=== PATIENT | male | born 1975 | race Caucasian/White ===

== ENCOUNTER 2023-01-28 10:20 | Inpatient (IN) | payer OTHER ==
[~2023-01-28] VITALS: Ht 185.4 cm; Wt 77.0 kg
[~2023-01-28 10:20] MED LIST: ACET-2247 PO; FAMO20 PO; GABA-1216 PO; HYDR50CA7 PO; MAGN-169 PO; TRAZ-252 PO
[2023-01-28 12:25] LABS: COVID AG,FIA SOURCE NASAL SWAB
[2023-01-28 12:29] LABS: BASOPHILS % (AUTO) 0.5 % (0.0-2.0); EOSINOPHILS % (AUTO) 1.6 % (1.0-6.0); HEMATOCRIT 45.6 % (41-53); HEMOGLOBIN 15.9 g/dL (13.5-17.5); LYMPHOCYTES # (AUTO) 2.7 K/uL (1.0-4.8); LYMPHOCYTES % (AUTO) 35.9 % (22.0-44.0); MEAN CORPUSCULAR HEMOGLOBIN 30.1 pg (26.0-34.0); MEAN CORPUSCULAR HGB CONC 34.7 G/dL (31.0-37.0); MEAN CORPUSCULAR VOLUME 87 fL (80-100); MONOCYTES % (AUTO) 12.7 % (2.0-9.0); NEUTROPHILS # (AUTO) 3.7 K/uL (1.8-7.7); NEUTROPHILS % (AUTO) 49.3 % (40.0-70.0); PLATELET COUNT (AUTO) 270 K/uL (150-450); RED BLOOD CELL COUNT(AUTO) 5.26 MIL/uL (4.50-5.90); RED CELL DISTRIBUTION WIDTH 13.9 % (11.5-14.5); WHITE BLOOD COUNT (AUTO) 7.5 K/uL (4.5-11.0)
[2023-01-28] MEDS ORDERED: MAGNESIUM HYDROXIDE SUSPENSION 30 ML UDCUP PO PRN (12:30)
[2023-01-28 12:49] LABS: ANION GAP 10 mmol/L (8-16); CARBON DIOXIDE 26 mmol/L (22-29); CHLORIDE 104 mmol/L (98-107); CREATININE 0.95 mg/dL (0.60-1.30); GLOMERULAR FILTR. RATE CALC > 60 mL/min (>60); GLUCOSE,RANDOM 82 mg/dL (70-110); POTASSIUM 3.8 mmol/L (3.5-5.1); SODIUM SERUM 140 mmol/L (136-145); UREA NITROGEN, BLOOD 14 mg/dL (7-18)
[2023-01-28 12:55] LABS: ALANINE AMINOTRANSFERASE 21 U/L (12-78); ALBUMIN 3.5 g/dL (3.4-5.0); ALKALINE PHOSPHATASE 58 U/L (46-116); ASPARTATE AMINOTRANSFERASE 12 U/L (15-37); BILIRUBIN,TOTAL 0.3 mg/dL (0.1-1.0); TOTAL PROTEIN, SERUM 7.4 g/dL (6.4-8.2)
[2023-01-28 12:59] LABS: SARS-COV2 (COVID) ANTIGEN,FIA Positive (Negative)
[2023-01-28] MEDS: ACETAMINOPHEN 325 MG TABLET PO PRN (17:34)
[2023-01-28 18:12] VITALS: BP 134/83; PULSE 73; RESP 18; TEMP 98.1
[2023-01-28 20:27] VITALS: BP 108/54; PULSE 69; RESP 18; TEMP 97.7
[2023-01-28 22:03] LABS: ALCOHOL, URINE DRUG SCREEN NEGATIVE (NEGATIVE); AMPHET/METH SCREEN,URINE NEGATIVE (NEGATIVE); BARBITURATE SCREEN, URINE NEGATIVE (NEGATIVE); BENZODIAZEPINES SCREEN,URINE NEGATIVE (NEGATIVE); CANNABINOID SCREEN,URINE NEGATIVE (NEGATIVE); COCAINE SCREEN,URINE NEGATIVE (NEGATIVE); METHADONE SCREEN, URINE NEGATIVE (NEGATIVE); OPIATE SCREEN,URINE NEGATIVE (NEGATIVE); PHENCYCLIDINE SCREEN,URINE NEGATIVE (NEGATIVE)
[2023-01-28 23:47] VITALS: BP 119/73; PULSE 69; RESP 18; TEMP 98
[2023-01-29] VITALS (10 sets, daily range): BP systolic 104–141; BP diastolic 60–83; PULSE 61–81; RESP 16–18; TEMP 97.5–98.5
[2023-01-29] MEDS: ZOLPIDEM TARTRATE 5 MG TABLET PO PRN ×2 (01:19→22:15)
[2023-01-29] MEDS: ACETAMINOPHEN 325 MG TABLET PO PRN (07:00)
[2023-01-29] MEDS: FAMOTIDINE 20 MG TABLET PO SCH (08:48)
[2023-01-29] MEDS ORDERED: MAG HYDROX/ALUMINUM HYD/SIMETH ES 30 ML SUSPENSION UDCUP PO PRN (11:15)
[2023-01-29] MEDS ORDERED: CloNIDine HCL 0.1 MG TABLET PO PRN (11:15)
[2023-01-29] MEDS: SERTRALINE HCL 50 MG TABLET PO SCH (12:10)
[2023-01-29] MEDS: CloNIDine HCL 0.1 MG TABLET PO SCH ×3 (12:10→22:15)
[2023-01-29] MEDS: TraZODone HCL 50 MG TABLET PO SCH (20:50)
[2023-01-30 04:33] VITALS: BP 102/62; PULSE 60; RESP 18; TEMP 97.7
[2023-01-30 05:53] VITALS: BP 124/68; PULSE 61; RESP 18
[2023-01-30] MEDS: CloNIDine HCL 0.1 MG TABLET PO SCH ×4 (05:55→20:42)
[2023-01-30] MEDS: ACETAMINOPHEN 325 MG TABLET PO PRN (06:39)
[2023-01-30 08:25] VITALS: BP 118/72; PULSE 66; RESP 19; TEMP 97.9
[2023-01-30] MEDS: FAMOTIDINE 20 MG TABLET PO SCH (08:39)
[2023-01-30] MEDS: SERTRALINE HCL 50 MG TABLET PO SCH (08:39)
[2023-01-30] MEDS ORDERED: INFLUENZA VIRUS VACCINE QVS 2023-24 (6MO+)/PF 60 MCG/0.5 ML SYRINGE IM. ONE (10:30)
[2023-01-30] MEDS: HydrOXYzine PAMOATE 50 MG CAPSULE PO PRN (15:00)
[2023-01-30 19:58] VITALS: BP 101/69; PULSE 68; RESP 18; TEMP 98.1
[2023-01-30] MEDS: TraZODone HCL 50 MG TABLET PO SCH (20:39)
[2023-01-30] MEDS: ZOLPIDEM TARTRATE 5 MG TABLET PO PRN (20:46)
[2023-01-31 06:24] VITALS: BP 102/78; PULSE 66; RESP 18; TEMP 97.7
[2023-01-31] MEDS: ACETAMINOPHEN 325 MG TABLET PO PRN ×3 (06:35→21:03)
[2023-01-31] MEDS: CloNIDine HCL 0.1 MG TABLET PO SCH ×4 (06:36→21:02)
[2023-01-31 08:07] VITALS: BP 104/76; PULSE 68; RESP 18; TEMP 97.8
[2023-01-31] MEDS: FAMOTIDINE 20 MG TABLET PO SCH (09:02)
[2023-01-31] MEDS: SERTRALINE HCL 50 MG TABLET PO SCH (09:02)
[2023-01-31 17:05] VITALS: BP 103/57; PULSE 64; RESP 20; TEMP 97.8
[2023-01-31] MEDS: HydrOXYzine PAMOATE 50 MG CAPSULE PO PRN (18:52)
[2023-01-31 19:45] VITALS: BP 106/59; PULSE 64; RESP 18; TEMP 97.8
[2023-01-31] MEDS: TraZODone HCL 50 MG TABLET PO SCH (21:02)
[2023-01-31] MEDS: ZOLPIDEM TARTRATE 5 MG TABLET PO PRN (21:02)
[2023-02-01] MEDS: CloNIDine HCL 0.1 MG TABLET PO SCH ×4 (05:25→21:13)
[2023-02-01 05:42] VITALS: BP 101/70; PULSE 58; PULSE 62; RESP 18; TEMP 98
[2023-02-01] MEDS: ACETAMINOPHEN 325 MG TABLET PO PRN (05:44)
[2023-02-01 08:11] VITALS: BP 100/60; PULSE 62; RESP 18; TEMP 97.7
[2023-02-01] MEDS: SERTRALINE HCL 50 MG TABLET PO SCH (09:14)
[2023-02-01] MEDS: FAMOTIDINE 20 MG TABLET PO SCH (09:14)
[2023-02-01 11:52] VITALS: BP 105/65; RESP 19
[2023-02-01] MEDS: HydrOXYzine PAMOATE 50 MG CAPSULE PO PRN (14:55)
[2023-02-01 15:31] VITALS: BP 123/64; PULSE 68; RESP 18; TEMP 97.5
[2023-02-01 20:05] VITALS: BP 107/57; PULSE 55; RESP 20; TEMP 97.5
[2023-02-01] MEDS: ZOLPIDEM TARTRATE 5 MG TABLET PO PRN (21:07)
[2023-02-01] MEDS: TraZODone HCL 50 MG TABLET PO SCH (21:07)
[2023-02-02 04:00] VITALS: BP 102/70; PULSE 54; RESP 18; TEMP 98.1
[2023-02-02] MEDS: CloNIDine HCL 0.1 MG TABLET PO SCH ×5 (06:00→20:24)
[2023-02-02] MEDS: FAMOTIDINE 20 MG TABLET PO SCH (08:05)
[2023-02-02] MEDS: SERTRALINE HCL 50 MG TABLET PO SCH (08:05)
[2023-02-02 08:21] VITALS: BP 135/79; PULSE 67; RESP 18; TEMP 97.5
[2023-02-02] MEDS: HydrOXYzine PAMOATE 50 MG CAPSULE PO PRN (11:37)
[2023-02-02] MEDS: ACETAMINOPHEN 325 MG TABLET PO PRN ×2 (11:38→17:00)
[2023-02-02 17:08] VITALS: BP 117/66; PULSE 66
[2023-02-02 20:13] VITALS: BP 104/57; PULSE 60; RESP 18; TEMP 97.8
[2023-02-02] MEDS: TraZODone HCL 50 MG TABLET PO SCH (20:14)
[2023-02-02] MEDS: ZOLPIDEM TARTRATE 5 MG TABLET PO PRN (20:22)
[2023-02-03] MEDS: HydrOXYzine PAMOATE 50 MG CAPSULE PO PRN (04:37)
[2023-02-03 04:46] VITALS: BP 104/64; PULSE 52; RESP 18; TEMP 97.6
[2023-02-03] MEDS: CloNIDine HCL 0.1 MG TABLET PO SCH (05:12)
[2023-02-03] MEDS: ACETAMINOPHEN 325 MG TABLET PO PRN ×2 (05:58→16:02)
[2023-02-03 07:10] LABS: COVID AG,FIA SOURCE NASAL SWAB
[2023-02-03 07:31] LABS: SARS-COV2 (COVID) ANTIGEN,FIA Negative (Negative)
[2023-02-03 08:28] VITALS: BP 99/56; PULSE 62; RESP 18; TEMP 98
[2023-02-03] MEDS: SERTRALINE HCL 50 MG TABLET PO SCH ×2 (08:35→08:40)
[2023-02-03] MEDS: FAMOTIDINE 20 MG TABLET PO SCH (08:35)
[2023-02-03 15:36] VITALS: BP 114/92; PULSE 65; RESP 18; TEMP 98
[2023-02-03] MEDS: TraZODone HCL 50 MG TABLET PO SCH (20:07)
[2023-02-03] MEDS: ZOLPIDEM TARTRATE 5 MG TABLET PO PRN (20:07)
[2023-02-03 20:11] VITALS: BP 124/80; PULSE 72; RESP 20; TEMP 98.3
[2023-02-04 05:24] VITALS: BP 120/76; PULSE 69; RESP 20; TEMP 97.8
[2023-02-04] MEDS: FAMOTIDINE 20 MG TABLET PO SCH (08:44)
[2023-02-04] MEDS: ACETAMINOPHEN 325 MG TABLET PO PRN ×2 (08:46→14:56)
[2023-02-04 08:59] VITALS: BP 107/75; PULSE 69; RESP 20; TEMP 97.6
[2023-02-04] MEDS: SERTRALINE HCL 50 MG TABLET PO SCH (09:00)
[2023-02-04] MEDS: TraZODone HCL 50 MG TABLET PO SCH (19:56)
[2023-02-04] MEDS: ZOLPIDEM TARTRATE 5 MG TABLET PO PRN (19:56)
[2023-02-04] MEDS: OLANZapine 5 MG TABLET PO SCH (19:56)
[2023-02-04 20:01] VITALS: BP 105/66; PULSE 61; RESP 20; TEMP 97.8
[2023-02-04] MEDS: IBUPROFEN 600 MG TABLET PO PRN (20:02)
[2023-02-05 05:08] VITALS: BP 101/62; PULSE 58; RESP 20; TEMP 97.8
[2023-02-05] MEDS: FAMOTIDINE 20 MG TABLET PO SCH (07:54)
[2023-02-05 08:16] VITALS: BP 117/68; PULSE 62; RESP 20; TEMP 97.8
[2023-02-05] MEDS: IBUPROFEN 600 MG TABLET PO PRN ×3 (08:25→20:30)
[2023-02-05] MEDS ORDERED: TRAZ-184 PO (14:54)
[2023-02-05] MEDS ORDERED: OLAN5TAB52 PO (14:55)
[2023-02-05 15:28] VITALS: BP 126/76; PULSE 78; RESP 20; TEMP 97.5
[2023-02-05 19:30] VITALS: BP 139/85; PULSE 63; RESP 20; TEMP 97.9
[2023-02-05] MEDS: ZOLPIDEM TARTRATE 5 MG TABLET PO PRN (20:26)
[2023-02-05] MEDS: OLANZapine 5 MG TABLET PO SCH (20:26)
[2023-02-05] MEDS: TraZODone HCL 50 MG TABLET PO SCH (20:26)
[2023-02-06 05:38] VITALS: BP 105/64; PULSE 59; RESP 18; TEMP 97.7
== END 2023-02-06 06:10 | DRG 885 ==
LOC: EMS 10:43 → 6S 12:18 → 5S 16:34 → 6S 01-29 20:05 → 6N 01-29 22:09
PROVIDERS: ADMIT Internal Medicine; ATTEND Internal Medicine
DX: F33.2 Major depressive disorder, recurrent severe without psychotic features (principal); U07.1 COVID-19; R45.851 Suicidal ideations; G57.92 Unspecified mononeuropathy of left lower limb; F41.9 Anxiety disorder, unspecified; F11.10 Opioid abuse, uncomplicated; G47.00 Insomnia, unspecified; Z79.899 Other long term (current) drug therapy; Z86.19 Personal history of other infectious and parasitic diseases
CPT/HCPCS: 71045; 80053; 80307; 85025; 93005; 99285; 36415-L1; 36415-TC